=== PATIENT | female | born 1980 | race Caucasian/White ===

== ENCOUNTER 2017-10-05 12:45 | Emergency (ER) | payer SELFPAY ==
[~2017-10-05 12:45] MED LIST: BENT20TA PO; ZOFR4TAB3 SL
[2017-10-05 13:04] VITALS: BP 135/83; PULSE 68; RESP 18; TEMP 97.9; O2SAT 99
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
[2017-10-05] MEDS ORDERED: TETANUS/DIPHTHERIA TOXOID ADULT 0.5 ML VIAL IM ONE (13:15)
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
== END 2017-10-05 18:01 | disposition home or self-care (01) ==
LOC: NEDAMB 12:45
DX: M54.5 Low back pain (principal); M25.562 Pain in left knee; S60.512A Abrasion of left hand, initial encounter; S60.511A Abrasion of right hand, initial encounter; S80.212A Abrasion, left knee, initial encounter; F11.90 Opioid use, unspecified, uncomplicated; V19.9XXA Pedal cyclist (driver) (passenger) injured in unspecified traffic accident, initial encounter; Z23 Encounter for immunization; Z72.0 Tobacco use
CPT/HCPCS: 70450; 72125; 72131; 90471; 90714

== ENCOUNTER 2017-10-16 15:46 | Emergency (ER) | payer OTHER ==
[2017-10-16 15:55] VITALS: BP 118/75; PULSE 94; RESP 18; TEMP 98.3; O2SAT 100
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
[2017-10-16 17:19] VITALS: BP 116/71; PULSE 89; RESP 18; O2SAT 93
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
== END 2017-10-16 17:40 | disposition home or self-care (01) ==
LOC: PHED 15:46
DX: S29.011A Strain of muscle and tendon of front wall of thorax, initial encounter (principal); F17.200 Nicotine dependence, unspecified, uncomplicated; X58.XXXA Exposure to other specified factors, initial encounter
CPT/HCPCS: 71101; 84703; 99283